=== PATIENT | male | born 1960 | race Caucasian/White ===

== ENCOUNTER → 2021-03-05 | Outpatient (CLI) | payer SELFPAY ==
[~2021-03-05] MED LIST: ACHD5005 PO; DOCU-143 PO; MULT-567 PO; Multivitamin; OMEP20CA18 PO; Omeprazole; ZINC50TA58 PO; Zinc
--- NOTE | 2021-03-05 10:06 | Diagnostic Imaging Report ---
EXAMINATION: CT calcium scoring without contrast. TECHNIQUE: Multiple contiguous axial images were obtained through the chest without the use of intravenous contrast for purposes of calcium scoring. All CT scans use one or more of the following dose optimizing techniques: automated exposure control, MA and/or KvP adjustment based on patient size and exam type or iterative reconstruction. HISTORY: Hyperlipidemia COMPARISON: None available. FINDINGS: The calculated coronary artery calcium score is 116. There is no edema or pneumonia. No pleural effusion. No pneumothorax. No suspicious nodules. Heart size is normal. No pericardial effusion. Aorta is normal in caliber. There is no axillary or supraclavicular lymphadenopathy. There is no mediastinal lymphadenopathy. Limited views of the upper abdomen are unremarkable. There are no suspicious osseus lesions. IMPRESSION: 1. Calculated coronary artery calcium score of 116 placing the patient between the 50th and 75th percentiles. Dictated by: Dictated on workstation # [id number]
== END ==
LOC: RAD FS 09:27
PROVIDERS: ATTEND Internal Medicine
DX: E78.5 Hyperlipidemia, unspecified (principal)
CPT/HCPCS: 75571